=== PATIENT | male | born 1955 | race Two or more races ===

== ENCOUNTER 2022-09-29 12:51 | Emergency (ER) | payer OTHER ==
[~2022-09-29] VITALS: Ht 175.3 cm; Wt 140.9 kg
[2022-09-29 12:51] VITALS: BP 181/90
[2022-09-29] MEDS ORDERED: methylPREDNISolone SOD SUCC 125 MG/2 ML VL IV ONE (13:45)
[2022-09-29 14:23] LABS: Basophils # (auto) 0.1 10 ^3/uL (0-0.2); Basophils % (auto) 0.7 % (0.0-2.0); Eosinophils # (auto) 0.4 10 ^3/uL (0-0.8); Eosinophils % (auto) 4.6 % (0.0-7.0); Hematocrit 40.1 % (41.0-53.0); Hemoglobin 12.8 g/dL (13.5-17.5); Lymphocytes # (auto) 1.7 10 ^3/uL (0.4-5.4); Lymphocytes % (auto) 20.9 % (10.0-50.0); Mean Corpuscular Hemoglobin 30.4 pg (28.0-32.0); Mean Corpuscular Volume 95.1 fL (80.0-100.0); Monocytes # (auto) 0.6 10 ^3/uL (0-1.3); Monocytes % (auto) 7.6 % (0.0-12.0); Neutrophils # (auto) 5.4 10 ^3/uL (1.6-8.6); Neutrophils % (auto) 66.2 % (37.0-80.0); Nucleated Red Blood Cells % 0.1 %; Red Blood Cells 4.21 10^6/uL (4.5-5.90); Red Cell Distribution Width 14.2 % (11.8-14.3); White Blood Cell 8.1 10^3/uL (4.4-10.8)
[2022-09-29 14:40] LABS: Albumin 3.3 g/dL (3.4-5.0); BUN/Creatinine Ratio 14.1; Calcium 8.6 mg/dL (8.5-10.1); Magnesium 2.4 mg/dL (1.6-2.6); Potassium 5.1 mmol/L (3.5-5.1)
[2022-09-29 14:43] LABS: Bilirubin, Total 0.4 mg/dL (0.2-1.0); Total Protein 6.5 g/dL (6.4-8.2)
[2022-09-29] MEDS ORDERED: IOHEXOL 350 MG/ML 100ML IJ ONE (16:45)
[2022-09-29] MEDS ORDERED: ALBUTEROL SULF 2.5 MG/0.5ML(0.5%) NEB SOLN NEB PRN (17:15)
[2022-09-29] MEDS ORDERED: SODIUM CHLORIDE 0.9% 1,000 ML IV SCH (17:15)
[2022-09-29] MEDS ORDERED: ACETAMINOPHEN 325 MG TAB PO PRN (17:15)
[2022-09-29] MEDS ORDERED: methylPREDNISolone SOD SUCC 125 MG/2 ML VL IV SCH (22:00)
[2022-09-30] MEDS ORDERED: ENOXAPARIN SOD 40 MG/0.4 ML SYRINGE SC SCH (10:00)
== END 2022-09-29 19:00 | disposition left against medical advice (07) ==
LOC: ER 12:51 → EDBD 12:51 → ER 15:00
DX: J96.00 Acute respiratory failure, unspecified whether with hypoxia or hypercapnia (principal); R41.82 Altered mental status, unspecified; E11.9 Type 2 diabetes mellitus without complications; E78.5 Hyperlipidemia, unspecified; I10 Essential (primary) hypertension; Z86.73 Personal history of transient ischemic attack (TIA), and cerebral infarction without residual deficits; Z20.822 Contact with and (suspected) exposure to COVID-19
CPT/HCPCS: 36415; 71045; 80053; 83605; 83735; 83880; 84484; 85025; 85379; 87040; 87426; 87804; 93005

== ENCOUNTER 2023-11-25 20:09 | Inpatient (IN) | payer OTHER ==
[~2023-11-25] VITALS: Ht 188 cm; Wt 142.3 kg
[2023-11-25 20:36] VITALS: PULSE 89; RESP 17; O2SAT 99
[2023-11-25 21:14] LABS: Urine Bacteria FEW /hpf (None Seen); Urine Blood Negative /uL (Negative); Urine Clarity Clear (Clear); Urine Color Yellow (Yellow); Urine Hyaline Cast MOD /lpf (0 - 2); Urine Mucus FEW (None Seen); Urine Protein, UAD 1+ (Negative); Urine Specific Gravity 1.014 (1.001-1.035); Urine Urobilinogen Normal (Negative); Urine WBC 1 /hpf (0 - 3)
[2023-11-25 21:18] LABS: Hemoglobin 12.3 g/dL (13.5-17.5); Mean Corpuscular Hemoglobin 27.9 pg (28.0-32.0)
[2023-11-25 21:19] LABS: Hematocrit 39.9 % (41.0-53.0); Mean Corpuscular Hgb Conc. 30.8 g/dL (32.0-36.0); Mean Corpuscular Volume 90.8 fL (80.0-100.0); Red Blood Cells 4.39 10^6/uL (4.5-5.90); Red Cell Distribution Width 17.2 % (11.8-14.3); White Blood Cell 9.3 10^3/uL (4.4-10.8)
[2023-11-25 21:24] LABS: Band Neutrophils % (manual) 0; Basophils % (manual) 0 (0.0-2.0); Blast Cells 0; Eosinophils % (manual) 0 (0-7); Metamyelocytes % 0; Myelocytes % 0; Promyelocytes % 0
[2023-11-25 21:29] LABS: Alanine Aminotransferase 15 U/L (7-40); Albumin 4.2 g/dL (3.2-4.8); Alkaline Phosphatase 70 U/L (46-116); Anion Gap 2 (5-15); Aspartate Aminotransferase 17 U/L (13-40); BUN/Creatinine Ratio 11.7 (10.0-20.0); Bilirubin, Total 0.5 mg/dL (0.2-1.0); Blood Alcohol 3.8 mg/dL (<10); Blood Urea Nitrogen 24 mg/dL (9-23); Carbon Dioxide 32 mmol/L (20-30); Chloride 99 mmol/L (98-107); Glucose 122 mg/dL (74-106); Potassium 5.4 mmol/L (3.5-5.1); Sodium 133 mmol/L (136-145); Total Protein 6.8 g/dL (5.7-8.2)
[2023-11-25] MEDS: FUROSEMIDE 40 MG/4 ML VIAL IV ONE (21:30)
[2023-11-25 21:42] LABS: Lymphocytes % (manual) 10 (10.0-50.0); Monocytes % (manual) 8 (0-12)
[2023-11-25 21:43] LABS: Large Platelets FEW; Platelet Estimate Adequate; Reactive Lymphocytes 2
[2023-11-25] MEDS ORDERED: HYDROcodone-ACET 5/325MG TAB PO PRN (22:15)
[2023-11-25] MEDS ORDERED: DOCUSATE SOD 100 MG CAP PO PRN (22:15)
[2023-11-25] MEDS ORDERED: ACETAMINOPHEN 325 MG TAB PO PRN (22:15)
[2023-11-25] MEDS ORDERED: ONDANSETRON HCL 4 MG/2 ML VIAL IV PRN (22:15)
[2023-11-25] MEDS ORDERED: DEXTROSE (50%) 50ML SYRG IV PRN (22:15)
[2023-11-25] MEDS ORDERED: NITROGLYCERIN 0.4 MG SL TAB SL PRN (22:45)
[2023-11-26] VITALS (92 sets, daily range): BP systolic 83–170; BP diastolic 45–82; PULSE 50–90; RESP 10–22; TEMP 97.9–99.5; O2SAT 87–100
[2023-11-26 02:21] LABS: Base Excess -1.4 mmol/L (-2.0-2.0)
[2023-11-26] MEDS: LIDOCAINE 4MG/ML IV SOLN 500 ML IV SCH (03:00)
[2023-11-26] MEDS: ROCURONIUM 10MG/ML 10ML VIAL IV ONE ×2 (03:01→03:17)
[2023-11-26] MEDS: ETOMIDATE (2MG/ML) 20ML VIAL IV ONE ×2 (03:01→03:17)
[2023-11-26] MEDS: NOREPINEPHRINE 8 MG/250ML KIT 250 ML IV ONE (03:06)
[2023-11-26] MEDS: NOREPINEPHRINE 8 MG/250ML KIT 250 ML IV SCH (03:10)
[2023-11-26] MEDS: MIDAZOLAM DRIP 50 mg/50mL 50 ML IV ONE (03:13)
[2023-11-26] MEDS: MIDAZOLAM DRIP 50 mg/50mL 50 ML IV SCH (03:23)
[2023-11-26 03:44] LABS: Base Excess 0.8 mmol/L (-2.0-2.0)
[2023-11-26] MEDS: PROPOFOL 100 ML IV SCH (04:20)
[2023-11-26] MEDS: SODIUM CHLOR 0.9% PF (SALINE LOCK) 10ML VIAL/SYR IV SCH (06:00)
[2023-11-26] MEDS: ACCU-CHEK COMFORT CURVE STRIP VI SCH ×2 (06:38→19:32)
[2023-11-26] MEDS: InsuLIN REG 1unit/0.01ml Soln (100units/ml) SC SCH ×2 (06:40→18:00)
[2023-11-26 06:54] LABS: Basophils # (auto) 0 10 ^3/uL (0-0.2); Basophils % (auto) 0.3 % (0.0-2.0); Eosinophils # (auto) 0 10 ^3/uL (0-0.8); Lymphocytes # (auto) 1.5 10 ^3/uL (0.4-5.4); Neutrophils # (auto) 11.7 10 ^3/uL (1.6-8.6); White Blood Cell 14.8 10^3/uL (4.4-10.8)
[2023-11-26 06:57] LABS: Eosinophils % (auto) 0.1 % (0.0-7.0); Hematocrit 44.8 % (41.0-53.0); Hemoglobin 13.2 g/dL (13.5-17.5); Lymphocytes % (auto) 10.3 % (10.0-50.0); Mean Corpuscular Hemoglobin 28.1 pg (28.0-32.0); Mean Corpuscular Hgb Conc. 29.5 g/dL (32.0-36.0); Monocytes # (auto) 1.6 10 ^3/uL (0-1.3); Monocytes % (auto) 10.8 % (0.0-12.0); Neutrophils % (auto) 78.5 % (37.0-80.0); Nucleated Red Blood Cells % 0.5 %; Red Blood Cells 4.72 10^6/uL (4.5-5.90); Red Cell Distribution Width 18.1 % (11.8-14.3)
[2023-11-26 07:16] LABS: Alanine Aminotransferase 20 U/L (7-40); Albumin 4.3 g/dL (3.2-4.8); Alkaline Phosphatase 73 U/L (46-116); Anion Gap 8 (5-15); Aspartate Aminotransferase 32 U/L (13-40); BUN/Creatinine Ratio 17.2 (10.0-20.0); Bilirubin, Total 0.9 mg/dL (0.2-1.0); Carbon Dioxide 28 mmol/L (20-30); Chloride 97 mmol/L (98-107); Glucose 181 mg/dL (74-106); Sodium 133 mmol/L (136-145); Total Protein 6.6 g/dL (5.7-8.2)
[2023-11-26 07:29] LABS: Blood Urea Nitrogen 41 mg/dL (9-23); Potassium 6.2 mmol/L (3.5-5.1)
[2023-11-26] MEDS ORDERED: TAMS-35 PO (07:48)
[2023-11-26] MEDS ORDERED: SACU1TAB4 PO (07:48)
[2023-11-26] MEDS ORDERED: CARV3.1240 PO (07:48)
[2023-11-26] MEDS ORDERED: ATOR40TA52 PO (07:48)
[2023-11-26] MEDS ORDERED: GLIP5TAB12 PO (07:48)
[2023-11-26] MEDS ORDERED: FURO40TA4 PO (07:48)
[2023-11-26] MEDS ORDERED: DOCU-265 PO (07:51)
[2023-11-26] MEDS ORDERED: OMEP-434 PO (07:51)
[2023-11-26] MEDS ORDERED: ASPI-717 PO (07:51)
[2023-11-26 08:09] LABS: Base Excess 2.7 mmol/L (-2.0-2.0)
[2023-11-26] MEDS: SODIUM CHLORIDE 0.9% 500 ML IV ONE (08:43)
[2023-11-26] MEDS: BUMETANIDE 2.5mg/10ml (0.25 mg/ml) INJ IV ONE (08:56)
[2023-11-26] MEDS: ASPirin 81 mg TAB PO SCH (09:32)
[2023-11-26] MEDS: FUROSEMIDE 40 MG/4 ML VIAL IV SCH (09:32)
[2023-11-26 09:36] LABS: Platelet Estimate Adequate
[2023-11-26] MEDS: SODIUM ZIRCONIUM CYCL 10 GM PAK PO ONE (11:13)
[2023-11-26] MEDS ORDERED: DEXTROSE (50%) 50ML SYRG IV PRN (14:30)
[2023-11-26] MEDS: fentaNYL Drip 2500mCg/250mlNS 250 ML IV SCH (15:44)
[2023-11-26] MEDS: AMINO ACID INFUSION IN D10W 1,000 ML IV SCH (21:39)
[2023-11-26] MEDS ORDERED: CLINIMIX PER PHARMACY 0 ML IV SCH (23:00)
[2023-11-26] MEDS: FUROSEMIDE INJECTION 10 ML ONE (23:42)
[2023-11-26] MEDS: FUROSEMIDE INJECTION 100 MG in SODIUM CHL 0.9% 100 ML IV SCH (23:47)
[2023-11-27] VITALS (112 sets, daily range): BP systolic 93–146; BP diastolic 48–69; PULSE 57–70; RESP 17–22; TEMP 97–99.9; O2SAT 95–100
[2023-11-27 03:54] LABS: Basophils # (auto) 0.1 10 ^3/uL (0-0.2); Basophils % (auto) 0.7 % (0.0-2.0); Eosinophils # (auto) 0.1 10 ^3/uL (0-0.8); Eosinophils % (auto) 1.8 % (0.0-7.0); Hematocrit 39.3 % (41.0-53.0); Hemoglobin 12.3 g/dL (13.5-17.5); Lymphocytes # (auto) 1.5 10 ^3/uL (0.4-5.4); Lymphocytes % (auto) 20.9 % (10.0-50.0); Mean Corpuscular Hemoglobin 27.9 pg (28.0-32.0); Mean Corpuscular Hgb Conc. 31.2 g/dL (32.0-36.0); Mean Corpuscular Volume 89.3 fL (80.0-100.0); Monocytes # (auto) 0.5 10 ^3/uL (0-1.3); Monocytes % (auto) 7.6 % (0.0-12.0); Nucleated Red Blood Cells % 0.3 %; Red Cell Distribution Width 17.8 % (11.8-14.3); White Blood Cell 7.2 10^3/uL (4.4-10.8)
[2023-11-27 04:04] LABS: Alanine Aminotransferase 15 U/L (7-40); Albumin 3.4 g/dL (3.2-4.8); Alkaline Phosphatase 59 U/L (46-116); Aspartate Aminotransferase 14 U/L (13-40); BUN/Creatinine Ratio 15.6 (10.0-20.0); Blood Urea Nitrogen 33 mg/dL (9-23); Calcium 8.5 mg/dL (8.5-10.1); Chloride 100 mmol/L (98-107); Glucose 116 mg/dL (74-106); Potassium 3.5 mmol/L (3.5-5.1); Sodium 137 mmol/L (136-145); Triglycerides 178 mg/dL (< 150)
[2023-11-27 04:05] LABS: Bilirubin, Total 0.6 mg/dL (0.2-1.0); Phosphorus 2.3 mg/dL (2.4-5.1); Total Protein 5.5 g/dL (5.7-8.2)
[2023-11-27 04:07] LABS: Anion Gap 6 (5-15); Carbon Dioxide 31 mmol/L (20-30)
[2023-11-27 05:38] LABS: Magnesium 2.2 mg/dL (1.6-2.6)
[2023-11-27] MEDS: cefTRIAXone 1GM/50ML D5W 50 ML IV SCH (08:16)
[2023-11-27] MEDS ORDERED: DEXTROSE (50%) 50ML SYRG IV SCH (09:00)
[2023-11-27] MEDS: ENOXAPARIN SOD 40 MG/0.4 ML SYRINGE SC SCH (10:01)
[2023-11-27 11:38] LABS: Sodium Urine 61 mmol/L (40-220)
[2023-11-27 11:42] LABS: Protein, Urine < 6.0 mg/dL (0.0-11.9)
[2023-11-27] MEDS: ACCU-CHEK COMFORT CURVE STRIP VI SCH (11:43)
[2023-11-27] MEDS: InsuLIN REG 1unit/0.01ml Soln (100units/ml) SC SCH (11:44)
[2023-11-27 11:45] LABS: Creatinine, Urine 43.16 mg/dL (30.0-125.0)
[2023-11-27] MEDS: CEFEPIME 1GM/ 50ML 50 ML IV ONE (11:54)
[2023-11-27] MEDS: POTASSIUM PHOSPHATE 22 MEQ in SODIUM CHL 0.9% 100 ML IV ONE (16:28)
[2023-11-27] MEDS: AMINO ACID INFUSION IN D10W 1,000 ML IV SCH (21:46)
[2023-11-28] VITALS (108 sets, daily range): BP systolic 99–173; BP diastolic 45–74; PULSE 58–76; RESP 15–34; TEMP 98.6–100; O2SAT 95–100
[2023-11-28 04:11] LABS: Potassium 3.3 mmol/L (3.5-5.1)
[2023-11-28 04:18] LABS: BUN/Creatinine Ratio 18.1 (10.0-20.0); Magnesium 1.8 mg/dL (1.6-2.6)
[2023-11-28 04:19] LABS: Albumin 3.3 g/dL (3.2-4.8)
[2023-11-28 04:20] LABS: Phosphorus 3.4 mg/dL (2.4-5.1)
[2023-11-28 06:44] LABS: Basophils # (auto) 0.1 10 ^3/uL (0-0.2); Hemoglobin 12.4 g/dL (13.5-17.5); Lymphocytes # (auto) 1.4 10 ^3/uL (0.4-5.4); Lymphocytes % (auto) 16.4 % (10.0-50.0); Monocytes # (auto) 0.6 10 ^3/uL (0-1.3); Nucleated Red Blood Cells % 0.1 %; White Blood Cell 8.5 10^3/uL (4.4-10.8)
[2023-11-28 06:47] LABS: Basophils % (auto) 0.9 % (0.0-2.0); Eosinophils # (auto) 0.2 10 ^3/uL (0-0.8); Eosinophils % (auto) 2.4 % (0.0-7.0); Hematocrit 39.9 % (41.0-53.0); Mean Corpuscular Hemoglobin 27.7 pg (28.0-32.0); Mean Corpuscular Hgb Conc. 31.1 g/dL (32.0-36.0); Mean Corpuscular Volume 89.2 fL (80.0-100.0); Monocytes % (auto) 7.1 % (0.0-12.0); Neutrophils # (auto) 6.2 10 ^3/uL (1.6-8.6); Neutrophils % (auto) 73.2 % (37.0-80.0); Red Blood Cells 4.47 10^6/uL (4.5-5.90); Red Cell Distribution Width 17.1 % (11.8-14.3)
[2023-11-28] MEDS: Glucerna 1.2 Cal 1Liter BOTTLE GT SCH (07:37)
[2023-11-28 09:16] LABS: Base Excess 9.9 mmol/L (-2.0-2.0)
[2023-11-28] MEDS: CEFEPIME 1GM/ 50ML 50 ML IV SCH (10:07)
[2023-11-28] MEDS: POTASSIUM CHL 20MEQ/100ML 100 ML IV ONE (14:49)
[2023-11-28] MEDS: hydrALAZINE HCL 20 MG/ML VL IV PRN (17:26)
[2023-11-28] MEDS: acetaZOLAMIDE SODIUM 500 MG VL IV SCH (22:12)
[2023-11-29] VITALS (104 sets, daily range): BP systolic 80–131; BP diastolic 39–67; PULSE 59–90; RESP 18–19; TEMP 98.4–99.7; O2SAT 95–100
[2023-11-29 03:49] LABS: Calcium 8.1 mg/dL (8.7-10.4); Chloride 98 mmol/L (98-107); Potassium 3.3 mmol/L (3.5-5.1); Sodium 137 mmol/L (136-145)
[2023-11-29 03:50] LABS: Anion Gap 4 (5-15); Carbon Dioxide 35 mmol/L (20-30)
[2023-11-29 03:55] LABS: BUN/Creatinine Ratio 17.5 (10.0-20.0); Blood Urea Nitrogen 29 mg/dL (9-23); Glucose 136 mg/dL (74-106)
[2023-11-29 08:18] LABS: Base Excess 4.4 mmol/L (-2.0-2.0)
[2023-11-29 11:10] LABS: Magnesium 1.9 mg/dL (1.6-2.6)
[2023-11-29 11:11] LABS: Phosphorus 4.2 mg/dL (2.4-5.1)
[2023-11-29] MEDS: POTASSIUM CHL 20MEQ/100ML 100 ML IV ONE (12:26)
[2023-11-29] MEDS: PANTOPRAZOLE 40 MG/10 ML VIAL INJ IV ONE (14:09)
[2023-11-29] MEDS: CEFEPIME 2GM/50ML NS 50 ML IV SCH (18:16)
[2023-11-29] MEDS ORDERED: CEFEPIME 2GM/50ML NS 50 ML IV SCH (22:00)
[2023-11-30] VITALS (104 sets, daily range): BP systolic 76–148; BP diastolic 38–66; PULSE 51–73; RESP 18; TEMP 98.1–99.3; O2SAT 93–98
[2023-11-30 04:17] LABS: Eosinophils # (auto) 0.2 10 ^3/uL (0-0.8); Hemoglobin 12.3 g/dL (13.5-17.5); Monocytes # (auto) 0.8 10 ^3/uL (0-1.3)
[2023-11-30 04:19] LABS: Basophils # (auto) 0 10 ^3/uL (0-0.2); Basophils % (auto) 0.5 % (0.0-2.0); Eosinophils % (auto) 2.1 % (0.0-7.0); Hematocrit 40.3 % (41.0-53.0); Lymphocytes % (auto) 11.2 % (10.0-50.0); Mean Corpuscular Hemoglobin 27.6 pg (28.0-32.0); Mean Corpuscular Hgb Conc. 30.4 g/dL (32.0-36.0); Mean Corpuscular Volume 90.6 fL (80.0-100.0); Monocytes % (auto) 8.8 % (0.0-12.0); Neutrophils # (auto) 6.8 10 ^3/uL (1.6-8.6); Neutrophils % (auto) 77.4 % (37.0-80.0); Nucleated Red Blood Cells % 0.2 %; Red Blood Cells 4.45 10^6/uL (4.5-5.90); Red Cell Distribution Width 17.6 % (11.8-14.3); White Blood Cell 8.8 10^3/uL (4.4-10.8)
[2023-11-30 04:46] LABS: Alanine Aminotransferase 10 U/L (7-40); Albumin 3.5 g/dL (3.2-4.8); Alkaline Phosphatase 63 U/L (46-116); Anion Gap 5 (5-15); Aspartate Aminotransferase 16 U/L (13-40); BUN/Creatinine Ratio 18.1 (10.0-20.0); Blood Urea Nitrogen 31 mg/dL (9-23); Calcium 8.3 mg/dL (8.7-10.4); Carbon Dioxide 32 mmol/L (20-30); Chloride 99 mmol/L (98-107); Glucose 155 mg/dL (74-106); Magnesium 2.1 mg/dL (1.6-2.6); Potassium 3.7 mmol/L (3.5-5.1); Sodium 136 mmol/L (136-145)
[2023-11-30 04:47] LABS: Bilirubin, Total 0.6 mg/dL (0.2-1.0); Phosphorus 4.1 mg/dL (2.4-5.1); Total Protein 5.9 g/dL (5.7-8.2)
[2023-11-30 06:45] LABS: Base Excess 5.4 mmol/L (-2.0-2.0)
[2023-11-30] MEDS: PANTOPRAZOLE 40 MG/10 ML VIAL INJ IV SCH (10:10)
[2023-11-30] MEDS: FUROSEMIDE 100 MG/10ML VIAL IV SCH (18:31)
[2023-11-30] MEDS ORDERED: DOCUSATE ORAL LIQUID 100 MG/10 ML UD GT PRN (20:00)
[2023-12-01] VITALS (106 sets, daily range): BP systolic 101–144; BP diastolic 39–64; PULSE 51–65; RESP 12–20; TEMP 96.8–98.8; O2SAT 90–100
[2023-12-01 03:52] LABS: Basophils # (auto) 0.1 10 ^3/uL (0-0.2); Eosinophils # (auto) 0.3 10 ^3/uL (0-0.8); Eosinophils % (auto) 3.5 % (0.0-7.0); Hematocrit 39.6 % (41.0-53.0); Hemoglobin 12.1 g/dL (13.5-17.5); Lymphocytes # (auto) 1.4 10 ^3/uL (0.4-5.4); Lymphocytes % (auto) 16.6 % (10.0-50.0); Mean Corpuscular Hemoglobin 27.4 pg (28.0-32.0); Mean Corpuscular Hgb Conc. 30.5 g/dL (32.0-36.0); Monocytes # (auto) 0.8 10 ^3/uL (0-1.3); Monocytes % (auto) 9.6 % (0.0-12.0); Neutrophils % (auto) 69.3 % (37.0-80.0); Nucleated Red Blood Cells % 0.2 %; Red Cell Distribution Width 17.4 % (11.8-14.3); White Blood Cell 8.6 10^3/uL (4.4-10.8)
[2023-12-01 04:17] LABS: Alanine Aminotransferase 12 U/L (7-40); Albumin 3.4 g/dL (3.2-4.8); Alkaline Phosphatase 58 U/L (46-116); Anion Gap 6 (5-15); Aspartate Aminotransferase 19 U/L (13-40); BUN/Creatinine Ratio 21.5 (10.0-20.0); Blood Urea Nitrogen 37 mg/dL (9-23); Calcium 8.6 mg/dL (8.7-10.4); Carbon Dioxide 31 mmol/L (20-30); Chloride 99 mmol/L (98-107); Glucose 126 mg/dL (74-106); Magnesium 2.2 mg/dL (1.6-2.6); Potassium 3.6 mmol/L (3.5-5.1); Sodium 136 mmol/L (136-145)
[2023-12-01 04:18] LABS: Bilirubin, Total 0.5 mg/dL (0.2-1.0); Phosphorus 4.2 mg/dL (2.4-5.1); Total Protein 5.8 g/dL (5.7-8.2)
[2023-12-01 06:47] LABS: Base Excess 1.6 mmol/L (-2.0-2.0)
[2023-12-02] VITALS (107 sets, daily range): BP systolic 108–186; BP diastolic 40–128; PULSE 52–122; RESP 10–27; TEMP 74.1–100.4; O2SAT 86–98
[2023-12-02 03:44] LABS: Basophils # (auto) 0 10 ^3/uL (0-0.2); Basophils % (auto) 0.6 % (0.0-2.0); Eosinophils # (auto) 0.2 10 ^3/uL (0-0.8); Hematocrit 39.1 % (41.0-53.0); Hemoglobin 12.3 g/dL (13.5-17.5); Lymphocytes # (auto) 1.1 10 ^3/uL (0.4-5.4); Lymphocytes % (auto) 15.5 % (10.0-50.0); Mean Corpuscular Hemoglobin 27.9 pg (28.0-32.0); Mean Corpuscular Hgb Conc. 31.3 g/dL (32.0-36.0); Mean Corpuscular Volume 89.1 fL (80.0-100.0); Monocytes # (auto) 0.6 10 ^3/uL (0-1.3); Monocytes % (auto) 8.2 % (0.0-12.0); Neutrophils # (auto) 5.5 10 ^3/uL (1.6-8.6); Neutrophils % (auto) 73.7 % (37.0-80.0); Nucleated Red Blood Cells % 0.1 %; Red Blood Cells 4.39 10^6/uL (4.5-5.90); Red Cell Distribution Width 17.6 % (11.8-14.3); White Blood Cell 7.4 10^3/uL (4.4-10.8)
[2023-12-02 04:06] LABS: Alanine Aminotransferase 15 U/L (7-40); Albumin 3.5 g/dL (3.2-4.8); Alkaline Phosphatase 63 U/L (46-116); Anion Gap 5 (5-15); Aspartate Aminotransferase 18 U/L (13-40); BUN/Creatinine Ratio 23.8 (10.0-20.0); Bilirubin, Total 0.5 mg/dL (0.2-1.0); Blood Urea Nitrogen 40 mg/dL (9-23); Calcium 8.6 mg/dL (8.7-10.4); Carbon Dioxide 30 mmol/L (20-30); Chloride 100 mmol/L (98-107); Glucose 176 mg/dL (74-106); Magnesium 2.4 mg/dL (1.6-2.6); Potassium 3.8 mmol/L (3.5-5.1); Sodium 135 mmol/L (136-145); Total Protein 5.9 g/dL (5.7-8.2)
[2023-12-02] MEDS ORDERED: CLINIMIX PER PHARMACY 0 ML IV SCH (18:45)
[2023-12-02] MEDS: AMINO ACID INFUSION IN D10W 1,000 ML IV SCH (20:22)
[2023-12-02] MEDS: MORPHINE SULFATE INJ 2 MG/ml SYRG IV PRN ×2 (21:15→21:19)
[2023-12-03] VITALS (50 sets, daily range): BP systolic 102–173; BP diastolic 51–118; PULSE 67–97; RESP 13–27; TEMP 98.3–100.6; O2SAT 94–99
[2023-12-03 05:02] LABS: Basophils # (auto) 0.1 10 ^3/uL (0-0.2); Basophils % (auto) 1.1 % (0.0-2.0)
[2023-12-03 05:04] LABS: Eosinophils # (auto) 0.2 10 ^3/uL (0-0.8); Eosinophils % (auto) 2.6 % (0.0-7.0); Hemoglobin 12.1 g/dL (13.5-17.5); Lymphocytes % (auto) 15.3 % (10.0-50.0); Mean Corpuscular Hemoglobin 27.4 pg (28.0-32.0); Mean Corpuscular Hgb Conc. 31.1 g/dL (32.0-36.0); Monocytes # (auto) 0.5 10 ^3/uL (0-1.3); Monocytes % (auto) 8.4 % (0.0-12.0); Neutrophils # (auto) 4.7 10 ^3/uL (1.6-8.6); Neutrophils % (auto) 72.6 % (37.0-80.0); Red Blood Cells 4.43 10^6/uL (4.5-5.90); Red Cell Distribution Width 17.1 % (11.8-14.3); White Blood Cell 6.5 10^3/uL (4.4-10.8)
[2023-12-03 05:19] LABS: Alanine Aminotransferase 22 U/L (7-40); Albumin 3.9 g/dL (3.2-4.8); Alkaline Phosphatase 67 U/L (46-116); Anion Gap 6 (5-15); Aspartate Aminotransferase 31 U/L (13-40); BUN/Creatinine Ratio 25.2 (10.0-20.0); Blood Urea Nitrogen 36 mg/dL (9-23); Calcium 9.1 mg/dL (8.7-10.4); Carbon Dioxide 30 mmol/L (20-30); Chloride 103 mmol/L (98-107); Glucose 156 mg/dL (74-106); Magnesium 2.4 mg/dL (1.6-2.6); Potassium 3.6 mmol/L (3.5-5.1); Sodium 139 mmol/L (136-145)
[2023-12-03 05:20] LABS: Bilirubin, Total 0.7 mg/dL (0.2-1.0); Phosphorus 2.3 mg/dL (2.4-5.1); Total Protein 6.6 g/dL (5.7-8.2)
[2023-12-03] MEDS ORDERED: DEXTROSE (50%) 50ML SYRG IV PRN (11:30)
[2023-12-03] MEDS ORDERED: DOCUSATE SOD 100 MG CAP PO PRN (11:30)
[2023-12-03] MEDS: ACCU-CHEK COMFORT CURVE STRIP VI SCH (12:28)
[2023-12-03] MEDS: LORazepam 2MG/ML-1ML VIAL IV PRN (12:29)
[2023-12-03] MEDS: InsuLIN REG 1unit/0.01ml Soln (100units/ml) SC SCH (12:36)
[2023-12-03] MEDS: POTASSIUM PHOSPHATE 22 MEQ in SODIUM CHL 0.9% 100 ML IV ONE (14:45)
[2023-12-03] MEDS ORDERED: ACETAMINOPHEN 650 MG RECT SUPP PR PRN (15:45)
[2023-12-03] MEDS: MORPHINE SULFATE INJ 2 MG/ml SYRG IV PRN (16:30)
[2023-12-04] VITALS (23 sets, daily range): BP systolic 89–173; BP diastolic 44–83; PULSE 74–118; RESP 11–35; TEMP 98.1–99.9; O2SAT 92–99
[2023-12-04 05:24] LABS: Basophils # (auto) 0.1 10 ^3/uL (0-0.2); Basophils % (auto) 1.2 % (0.0-2.0); Eosinophils # (auto) 0.1 10 ^3/uL (0-0.8); Lymphocytes # (auto) 0.8 10 ^3/uL (0.4-5.4); Monocytes # (auto) 0.6 10 ^3/uL (0-1.3); Neutrophils # (auto) 5.4 10 ^3/uL (1.6-8.6); Nucleated Red Blood Cells % 0.1 %
[2023-12-04 05:26] LABS: Eosinophils % (auto) 1.6 % (0.0-7.0); Hematocrit 42.2 % (41.0-53.0); Hemoglobin 12.9 g/dL (13.5-17.5); Lymphocytes % (auto) 11.7 % (10.0-50.0); Mean Corpuscular Hemoglobin 27.4 pg (28.0-32.0); Mean Corpuscular Hgb Conc. 30.5 g/dL (32.0-36.0); Mean Corpuscular Volume 89.7 fL (80.0-100.0); Monocytes % (auto) 8.9 % (0.0-12.0); Neutrophils % (auto) 76.6 % (37.0-80.0); Red Cell Distribution Width 17.5 % (11.8-14.3); White Blood Cell 7.1 10^3/uL (4.4-10.8)
[2023-12-04 05:43] LABS: Alanine Aminotransferase 38 U/L (7-40); Albumin 4.1 g/dL (3.2-4.8); Alkaline Phosphatase 74 U/L (46-116); Anion Gap 4 (5-15); Aspartate Aminotransferase 38 U/L (13-40); BUN/Creatinine Ratio 26.5 (10.0-20.0); Bilirubin, Total 0.7 mg/dL (0.2-1.0); Blood Urea Nitrogen 36 mg/dL (9-23); Calcium 9.4 mg/dL (8.7-10.4); Carbon Dioxide 31 mmol/L (20-30); Chloride 105 mmol/L (98-107); Glucose 195 mg/dL (74-106); Magnesium 2.5 mg/dL (1.6-2.6); Phosphorus 2.7 mg/dL (2.4-5.1); Potassium 3.6 mmol/L (3.5-5.1); Sodium 140 mmol/L (136-145); Total Protein 7.1 g/dL (5.7-8.2)
[2023-12-04] MEDS: SACUBITRIL-VALSARTAN 24mg/26mg TAB PO SCH (10:00)
[2023-12-04] MEDS: CARVEDILOL 3.125 MG TAB PO SCH (10:00)
[2023-12-05] VITALS (21 sets, daily range): BP systolic 123–163; BP diastolic 53–78; PULSE 64–88; RESP 10–35; TEMP 97.9–98.7; O2SAT 95–100
[2023-12-05] MEDS: ACETAMINOPHEN 650 MG RECT SUPP PR PRN (05:16)
[2023-12-05 06:02] LABS: Alanine Aminotransferase 56 U/L (7-40); Albumin 4.1 g/dL (3.2-4.8); Alkaline Phosphatase 75 U/L (46-116); Anion Gap 7 (5-15); Aspartate Aminotransferase 39 U/L (13-40); BUN/Creatinine Ratio 24.9 (10.0-20.0); Blood Urea Nitrogen 43 mg/dL (9-23); Calcium 9.6 mg/dL (8.7-10.4); Carbon Dioxide 30 mmol/L (20-30); Chloride 105 mmol/L (98-107); Glucose 176 mg/dL (74-106); Magnesium 2.5 mg/dL (1.6-2.6); Potassium 3.8 mmol/L (3.5-5.1); Sodium 142 mmol/L (136-145)
[2023-12-05 06:03] LABS: Bilirubin, Total 0.6 mg/dL (0.2-1.0); Phosphorus 3.5 mg/dL (2.4-5.1)
[2023-12-05] MEDS: FUROSEMIDE 40 MG/4 ML VIAL IV SCH (18:07)
[2023-12-06 05:27] VITALS: BP 161/76; PULSE 71; RESP 18; TEMP 98.5; O2SAT 97
[2023-12-06 06:52] LABS: Calcium 9.7 mg/dL (8.7-10.4)
[2023-12-06 06:57] LABS: Albumin 4.2 g/dL (3.2-4.8); BUN/Creatinine Ratio 27.3 (10.0-20.0); Magnesium 2.6 mg/dL (1.6-2.6)
[2023-12-06 06:59] LABS: Phosphorus 3.3 mg/dL (2.4-5.1)
[2023-12-06 08:00] VITALS: PULSE 66; PULSE 78; O2SAT 96
[2023-12-06 13:00] VITALS: BP 138/55; PULSE 74; RESP 18; TEMP 98.1; O2SAT 96
[2023-12-06 17:00] VITALS: BP 136/57; PULSE 67; RESP 20; TEMP 98.5; O2SAT 90
[2023-12-06 20:00] VITALS: PULSE 107
[2023-12-06 21:48] VITALS: BP 119/65; PULSE 91; RESP 18; TEMP 97.6; O2SAT 94
[2023-12-07 06:00] VITALS: BP 150/68; PULSE 87; RESP 18; TEMP 97.7; O2SAT 95
[2023-12-07 06:26] LABS: Chloride 106 mmol/L (98-107); Potassium 4.2 mmol/L (3.5-5.1); Sodium 142 mmol/L (136-145)
[2023-12-07 06:27] LABS: Anion Gap 5 (5-15); Carbon Dioxide 31 mmol/L (20-30)
[2023-12-07 06:28] LABS: Calcium 9.9 mg/dL (8.5-10.1)
[2023-12-07 06:33] LABS: BUN/Creatinine Ratio 29.8 (10.0-20.0); Blood Urea Nitrogen 54 mg/dL (9-23); Glucose 177 mg/dL (74-106)
[2023-12-07 08:00] VITALS: PULSE 78; PULSE 80; RESP 20
[2023-12-07 09:00] VITALS: BP 132/59; PULSE 78; RESP 20; TEMP 99; O2SAT 97
[2023-12-07 11:56] VITALS: BP 121/69; PULSE 78; RESP 20; TEMP 98.4; O2SAT 94
[2023-12-07 13:00] VITALS: BP 121/69; PULSE 78; RESP 20; TEMP 98.5; O2SAT 94
[2023-12-07] MEDS ORDERED: LEVO250T58 PO (13:36)
== END 2023-12-07 12:30 | disposition home health service (06) | DRG 870 ==
LOC: EDBD 20:09 → ER 20:09 → TELE 22:35 → ICU WEST 11-26 04:51 → DOU IN ICU 12-03 13:48 → TELE-WESTW 12-05 16:47
PROVIDERS: ADMIT Nurse Practitioner Family; ATTEND Internal Medicine Geriatric Medicine
PROC: 05HM33Z Insertion of Infusion Device into Right Internal Jugular Vein, Percutaneous Approach (ICD-10-PCS; 2023-11-25)
PROC: 5A1955Z Respiratory Ventilation, Greater than 96 Consecutive Hours (ICD-10-PCS; principal; 2023-11-26)
PROC: 0BH17EZ Insertion of Endotracheal Airway into Trachea, Via Natural or Artificial Opening (ICD-10-PCS; 2023-11-26)
PROC: 5A09357 Assistance with Respiratory Ventilation, Less than 24 Consecutive Hours, Continuous Positive Airway Pressure (ICD-10-PCS; 2023-11-26)
PROC: 0BDF8ZX Extraction of Right Lower Lung Lobe, Via Natural or Artificial Opening Endoscopic, Diagnostic (ICD-10-PCS; 2023-11-29)
PROC: 05HB33Z Insertion of Infusion Device into Right Basilic Vein, Percutaneous Approach (ICD-10-PCS; 2023-12-03)
PROC: B54MZZA Ultrasonography of Right Upper Extremity Veins, Guidance (ICD-10-PCS; 2023-12-03)
DX: A41.9 Sepsis, unspecified organism (principal); G93.41 Metabolic encephalopathy; R65.21 Severe sepsis with septic shock; J18.9 Pneumonia, unspecified organism; N17.0 Acute kidney failure with tubular necrosis; I50.43 Acute on chronic combined systolic (congestive) and diastolic (congestive) heart failure; J96.21 Acute and chronic respiratory failure with hypoxia; E87.3 Alkalosis; Z99.11 Dependence on respirator [ventilator] status; E87.20 Acidosis, unspecified; I13.0 Hypertensive heart and chronic kidney disease with heart failure and stage 1 through stage 4 chronic kidney disease, or unspecified chronic kidney disease; J44.0 Chronic obstructive pulmonary disease with (acute) lower respiratory infection; Z68.41 Body mass index [BMI] 40.0-44.9, adult; E87.5 Hyperkalemia; E87.6 Hypokalemia; E78.5 Hyperlipidemia, unspecified; R29.6 Repeated falls; N18.32 Chronic kidney disease, stage 3b; E66.01 Morbid (severe) obesity due to excess calories; F41.9 Anxiety disorder, unspecified; N40.0 Benign prostatic hyperplasia without lower urinary tract symptoms; B95.7 Other staphylococcus as the cause of diseases classified elsewhere; E11.22 Type 2 diabetes mellitus with diabetic chronic kidney disease; R00.1 Bradycardia, unspecified; Z71.3 Dietary counseling and surveillance; Z79.82 Long term (current) use of aspirin; Z79.899 Other long term (current) drug therapy; Z99.81 Dependence on supplemental oxygen; Z79.84 Long term (current) use of oral hypoglycemic drugs; Z85.46 Personal history of malignant neoplasm of prostate; Z86.73 Personal history of transient ischemic attack (TIA), and cerebral infarction without residual deficits; Z82.49 Family history of ischemic heart disease and other diseases of the circulatory system
CPT/HCPCS: 31500; 36415; 36556; 36600; 70450; 71045; 76604; 76775; 80048; 80053; 80069; 80320; 81001; 82570; 82805; 82962; 83735; 83880; 84100; 84132; 84156; 84300; 84443; 84478; 84484; 85007; 85025; 85027; 87040; 87070; 87077; 87081; 87086; 87186; 87205; 92610; 93005; 93306; 94002; 94003; 94660; 97110; 97116; 97163; 97530; 99152; 99291; C9113; G0378; J0692; J1815; J2250; J2704; J3480

== ENCOUNTER 2023-12-11 10:33 | Inpatient (IN) | payer OTHER ==
[2023-12-11] VITALS (11 sets, daily range): BP systolic 92–145; BP diastolic 32–52; PULSE 72–108; RESP 14–22; O2SAT 92–99
[~2023-12-11] VITALS: Ht 177.8 cm; Wt 135.5 kg
[~2023-12-11 10:33] MED LIST: LEVO250T58 PO
[2023-12-11 12:16] LABS: Urine Bacteria NONE SEEN /hpf (None Seen); Urine Blood 1+ /uL (Negative); Urine Clarity HAZY (Clear); Urine Color Yellow (Yellow); Urine Hyaline Cast FEW /lpf (0 - 2); Urine Protein, UAD 1+ (Negative); Urine Specific Gravity 1.018 (1.001-1.035); Urine Urobilinogen Normal (Negative); Urine WBC 10 /hpf (0 - 3); Urine WBC Clumps PRESENT /hpf (None Seen)
[2023-12-11 12:18] LABS: Basophils # (auto) 0 10 ^3/uL (0-0.2); Eosinophils # (auto) 0 10 ^3/uL (0-0.8); Eosinophils % (auto) 0.2 % (0.0-7.0); Lymphocytes # (auto) 0.8 10 ^3/uL (0.4-5.4); Monocytes # (auto) 0.4 10 ^3/uL (0-1.3); Nucleated Red Blood Cells % 0.1 %
[2023-12-11 12:20] LABS: Basophils % (auto) 0.5 % (0.0-2.0); Hematocrit 39.3 % (41.0-53.0); Lymphocytes % (auto) 10.5 % (10.0-50.0); Mean Corpuscular Hemoglobin 27.6 pg (28.0-32.0); Mean Corpuscular Hgb Conc. 30.5 g/dL (32.0-36.0); Mean Corpuscular Volume 90.4 fL (80.0-100.0); Monocytes % (auto) 5.1 % (0.0-12.0); Neutrophils % (auto) 83.7 % (37.0-80.0); Red Blood Cells 4.35 10^6/uL (4.5-5.90); Red Cell Distribution Width 17.4 % (11.8-14.3); White Blood Cell 7.2 10^3/uL (4.4-10.8)
[2023-12-11 12:33] LABS: Alanine Aminotransferase 78 U/L (7-40); Alkaline Phosphatase 110 U/L (46-116); Anion Gap 11 (5-15); Aspartate Aminotransferase 105 U/L (13-40); Bilirubin, Total 0.4 mg/dL (0.2-1.0); Calcium 8.7 mg/dL (8.5-10.1); Carbon Dioxide 23 mmol/L (20-30); Chloride 98 mmol/L (98-107); Glucose 174 mg/dL (74-106); Potassium 5.3 mmol/L (3.5-5.1); Total Protein 6.5 g/dL (5.7-8.2)
[2023-12-11 12:35] LABS: Sodium 132 mmol/L (136-145)
[2023-12-11 12:36] LABS: Blood Urea Nitrogen 139 mg/dL (9-23)
[2023-12-11] MEDS ORDERED: ONDANSETRON HCL 4 MG/2 ML VIAL IV PRN (13:15)
[2023-12-11] MEDS ORDERED: MORPHINE SULFATE INJ 2 MG/ml SYRG IV PRN (13:15)
[2023-12-11] MEDS ORDERED: DEXTROSE (50%) 50ML SYRG IV PRN (13:15)
[2023-12-11] MEDS ORDERED: NITROGLYCERIN 0.4 MG SL TAB SL PRN (13:15)
[2023-12-11] MEDS ORDERED: ACETAMINOPHEN 325 MG TAB PO PRN (13:15)
[2023-12-11] MEDS ORDERED: ALBUTEROL SULF 2.5 MG/0.5ML(0.5%) NEB SOLN NEB PRN (13:15)
[2023-12-11] MEDS: IPRATROPIUM BROM 0.5 MG/2.5ML INH SOL NEB SCH (13:32)
[2023-12-11] MEDS: ALBUTEROL SULF 2.5 MG/0.5ML(0.5%) NEB SOLN NEB SCH (13:32)
[2023-12-11 13:34] LABS: INR 1.09 (0.9-1.15); Partial Thromboplastin Time 29.2 SEC (24.5-34.5); Prothrombin Time 11.4 sec (9.3-11.8)
[2023-12-11] MEDS: SODIUM CHLORIDE 0.9% 500 ML IV ONE (13:55)
[2023-12-11] MEDS: SODIUM BICARB 8.4% 50Meq/50ml SYR Vial IV ONE (13:56)
[2023-12-11] MEDS: PANTOPRAZOLE 40 MG/10 ML VIAL INJ IV ONE (13:56)
[2023-12-11] MEDS: SODIUM CHLORIDE 0.9% 1,000 ML IV ONE (13:58)
[2023-12-11] MEDS: GLYCOPYRROLATE 0.2 MG/ML 1ML VIAL IV ONE (14:06)
[2023-12-11 14:19] LABS: Triglycerides 145 mg/dL (< 150)
[2023-12-11 14:20] LABS: LDL Cholesterol 65 mg/dL (< 100)
[2023-12-11 14:21] LABS: Cholesterol 112 mg/dL (< 200); HDL Cholesterol 21 mg/dL (40-59)
[2023-12-11 15:15] LABS: Amphetamine Screen, Urine Neg (NEGATIVE); Barbiturate Scree,Urine Neg (NEGATIVE); Benzodiazephine Screen, Urine Pos (NEGATIVE); Cocaine Screen, Urine Neg (NEGATIVE); Opiate Scree,Urine Pos (NEGATIVE)
[2023-12-11 15:16] LABS: Cannabinoid Screen, Urine Neg (NEGATIVE); Creatinine, Urine 196.57 mg/dL (30.0-125.0); Phencyclidine Screen, Urine Neg (NEGATIVE)
[2023-12-11] MEDS: cefTRIAXone 1GM/50ML D5W 50 ML IV ONE (16:00)
[2023-12-11] MEDS: AZITHROMYCIN 500MG/ 250ML 250 ML IV ONE (16:00)
[2023-12-11] MEDS: FUROSEMIDE 40 MG/4 ML VIAL IV ONE (16:09)
[2023-12-11] MEDS: CALCIUM GLUC 1,000mg/50ml-NS 50 ML IV ONE (16:10)
[2023-12-11] MEDS: ACCU-CHEK COMFORT CURVE STRIP VI SCH (17:00)
[2023-12-11] MEDS: InsuLIN REG 1unit/0.01ml Soln (100units/ml) SC SCH (17:00)
[2023-12-11] MEDS: NOREPINEPHRINE 8 MG/250ML KIT 250 ML IV SCH (17:15)
[2023-12-11] MEDS: NOREPINEPHRINE 8 MG/250ML KIT 250 ML IV ONE (17:16)
[2023-12-11] MEDS: ENOXAPARIN SOD 30 MG/0.3 ML SYRINGE SC SCH (19:02)
[2023-12-11] MEDS: ETOMIDATE (2MG/ML) 20ML VIAL IV ONE ×2 (19:16→19:47)
[2023-12-11] MEDS: ROCURONIUM 10MG/ML 10ML VIAL IV ONE ×2 (19:16→19:52)
[2023-12-11] MEDS: fentaNYL Drip 2500mCg/250mlNS 250 ML IV SCH (19:44)
[2023-12-11] MEDS: MIDAZOLAM DRIP 50 mg/50mL 50 ML IV SCH (19:53)
[2023-12-11 19:58] LABS: Alanine Aminotransferase 69 U/L (7-40); Albumin 3.9 g/dL (3.2-4.8); Alkaline Phosphatase 99 U/L (46-116); Anion Gap 11 (5-15); Aspartate Aminotransferase 97 U/L (13-40); BUN/Creatinine Ratio 16.2 (10.0-20.0); Bilirubin, Total 0.2 mg/dL (0.2-1.0); Calcium 8.1 mg/dL (8.7-10.4); Carbon Dioxide 25 mmol/L (20-30); Chloride 98 mmol/L (98-107); Glucose 119 mg/dL (74-106); Potassium 4.6 mmol/L (3.5-5.1); Sodium 134 mmol/L (136-145); Total Protein 6.6 g/dL (5.7-8.2)
[2023-12-11 20:00] LABS: Blood Urea Nitrogen 110 mg/dL (9-23)
[2023-12-11 20:22] LABS: Base Excess -10.4 mmol/L (-2.0-2.0)
[2023-12-12] VITALS (36 sets, daily range): BP systolic 84–156; BP diastolic 31–76; PULSE 66–117; RESP 13–21; TEMP 97.6–99.9; O2SAT 70–99
[2023-12-12 01:04] LABS: Base Excess -9.5 mmol/L (-2.0-2.0)
[2023-12-12 01:07] LABS: Base Excess -8.3 mmol/L (-2.0-2.0)
[2023-12-12 04:14] LABS: Basophils # (auto) 0 10 ^3/uL (0-0.2); Basophils % (auto) 0.6 % (0.0-2.0); Eosinophils # (auto) 0.1 10 ^3/uL (0-0.8); Eosinophils % (auto) 1.9 % (0.0-7.0); Hematocrit 35.7 % (41.0-53.0); Hemoglobin 11.2 g/dL (13.5-17.5); Lymphocytes # (auto) 1.2 10 ^3/uL (0.4-5.4); Lymphocytes % (auto) 16.1 % (10.0-50.0); Mean Corpuscular Hemoglobin 27.2 pg (28.0-32.0); Mean Corpuscular Hgb Conc. 31.4 g/dL (32.0-36.0); Mean Corpuscular Volume 86.8 fL (80.0-100.0); Monocytes # (auto) 0.6 10 ^3/uL (0-1.3); Monocytes % (auto) 8.5 % (0.0-12.0); Neutrophils # (auto) 5.4 10 ^3/uL (1.6-8.6); Neutrophils % (auto) 72.9 % (37.0-80.0); Nucleated Red Blood Cells % 0.1 %; Red Blood Cells 4.11 10^6/uL (4.5-5.90); Red Cell Distribution Width 17.6 % (11.8-14.3); White Blood Cell 7.5 10^3/uL (4.4-10.8)
[2023-12-12 04:37] LABS: Alanine Aminotransferase 57 U/L (7-40); Albumin 3.3 g/dL (3.2-4.8); Alkaline Phosphatase 82 U/L (46-116); Anion Gap 13 (5-15); Aspartate Aminotransferase 81 U/L (13-40); BUN/Creatinine Ratio 15.6 (10.0-20.0); Calcium 7.8 mg/dL (8.7-10.4); Carbon Dioxide 21 mmol/L (20-30); Chloride 101 mmol/L (98-107); Glucose 91 mg/dL (74-106); Potassium 3.6 mmol/L (3.5-5.1); Sodium 135 mmol/L (136-145)
[2023-12-12 04:38] LABS: Bilirubin, Total 0.5 mg/dL (0.2-1.0); Total Protein 5.7 g/dL (5.7-8.2)
[2023-12-12 04:50] LABS: Blood Urea Nitrogen 94 mg/dL (9-23)
[2023-12-12 06:46] LABS: Base Excess -3.2 mmol/L (-2.0-2.0)
[2023-12-12] MEDS: InsuLIN REG 1unit/0.01ml Soln (100units/ml) SC SCH (08:00)
[2023-12-12] MEDS: ACCU-CHEK COMFORT CURVE STRIP VI SCH (08:09)
[2023-12-12] MEDS: cefTRIAXone 1GM/50ML D5W 50 ML IV SCH (09:05)
[2023-12-12] MEDS: PANTOPRAZOLE 40 MG/10 ML VIAL INJ IV SCH (10:04)
[2023-12-12] MEDS: AZITHROMYCIN 500MG/ 250ML 250 ML IV SCH (10:04)
[2023-12-13] VITALS (116 sets, daily range): BP systolic 93–175; BP diastolic 47–83; PULSE 70–94; RESP 11–21; TEMP 97.2–99.3; O2SAT 91–98
[2023-12-13 04:32] LABS: Basophils # (auto) 0 10 ^3/uL (0-0.2); Basophils % (auto) 0.5 % (0.0-2.0); Eosinophils # (auto) 0.1 10 ^3/uL (0-0.8); Eosinophils % (auto) 2.4 % (0.0-7.0); Hematocrit 33.7 % (41.0-53.0); Hemoglobin 10.7 g/dL (13.5-17.5); Lymphocytes % (auto) 17.2 % (10.0-50.0); Mean Corpuscular Hemoglobin 27.5 pg (28.0-32.0); Mean Corpuscular Hgb Conc. 31.7 g/dL (32.0-36.0); Mean Corpuscular Volume 86.8 fL (80.0-100.0); Monocytes # (auto) 0.4 10 ^3/uL (0-1.3); Neutrophils # (auto) 4.3 10 ^3/uL (1.6-8.6); Neutrophils % (auto) 72.9 % (37.0-80.0); Red Blood Cells 3.89 10^6/uL (4.5-5.90); Red Cell Distribution Width 17.9 % (11.8-14.3); White Blood Cell 5.9 10^3/uL (4.4-10.8)
[2023-12-13 04:33] LABS: Anion Gap 11 (5-15); Carbon Dioxide 23 mmol/L (20-30); Chloride 104 mmol/L (98-107); Potassium 3.7 mmol/L (3.5-5.1); Sodium 138 mmol/L (136-145)
[2023-12-13 04:39] LABS: BUN/Creatinine Ratio 31.7 (10.0-20.0); Glucose 170 mg/dL (74-106)
[2023-12-13 04:58] LABS: Blood Urea Nitrogen 103 mg/dL (9-23)
[2023-12-13 07:35] LABS: Base Excess -4.8 mmol/L (-2.0-2.0)
[2023-12-14] VITALS (122 sets, daily range): BP systolic 112–182; BP diastolic 39–89; PULSE 61–119; RESP 11–25; TEMP 98.4–100; O2SAT 92–100
[2023-12-14 04:12] LABS: Basophils # (auto) 0 10 ^3/uL (0-0.2); Basophils % (auto) 0.8 % (0.0-2.0); Eosinophils # (auto) 0.3 10 ^3/uL (0-0.8); Eosinophils % (auto) 4.5 % (0.0-7.0); Hematocrit 33.3 % (41.0-53.0); Hemoglobin 10.5 g/dL (13.5-17.5); Lymphocytes % (auto) 17.1 % (10.0-50.0); Mean Corpuscular Hemoglobin 27.5 pg (28.0-32.0); Mean Corpuscular Hgb Conc. 31.6 g/dL (32.0-36.0); Mean Corpuscular Volume 87.2 fL (80.0-100.0); Monocytes # (auto) 0.5 10 ^3/uL (0-1.3); Neutrophils # (auto) 4.1 10 ^3/uL (1.6-8.6); Neutrophils % (auto) 69.6 % (37.0-80.0); Red Blood Cells 3.83 10^6/uL (4.5-5.90); Red Cell Distribution Width 18.1 % (11.8-14.3); White Blood Cell 5.9 10^3/uL (4.4-10.8)
[2023-12-14 04:30] LABS: Alanine Aminotransferase 38 U/L (7-40); Albumin 3.5 g/dL (3.2-4.8); Alkaline Phosphatase 72 U/L (46-116); Anion Gap 8 (5-15); Aspartate Aminotransferase 34 U/L (13-40); BUN/Creatinine Ratio 49.7 (10.0-20.0); Bilirubin, Total 0.4 mg/dL (0.2-1.0); Carbon Dioxide 26 mmol/L (20-30); Chloride 109 mmol/L (98-107); Glucose 121 mg/dL (74-106); Potassium 3.7 mmol/L (3.5-5.1); Sodium 143 mmol/L (136-145); Total Protein 5.7 g/dL (5.7-8.2)
[2023-12-14 04:59] LABS: Blood Urea Nitrogen 82 mg/dL (9-23)
[2023-12-14 07:35] LABS: Base Excess -1.2 mmol/L (-2.0-2.0)
[2023-12-14] MEDS: hydrALAZINE HCL 20 MG/ML VL IV ONE (09:18)
[2023-12-14] MEDS ORDERED: hydrALAZINE HCL 20 MG/ML VL IV PRN (11:30)
[2023-12-14] MEDS: METOPROLOL TARTRATE 1MG/1ML-5ML VIAL IV PRN (16:38)
[2023-12-14] MEDS: amLODIPine BESYLATE 5 MG TAB NG ONE (19:31)
[2023-12-14] MEDS: hydrALAZINE HCL 20 MG/ML VL IV PRN (21:24)
[2023-12-15] VITALS (113 sets, daily range): BP systolic 85–199; BP diastolic 44–107; PULSE 59–121; RESP 13–28; TEMP 98.6–99.9; O2SAT 92–100
[2023-12-15 04:35] LABS: Anion Gap 7 (5-15); Carbon Dioxide 27 mmol/L (20-30); Chloride 114 mmol/L (98-107)
[2023-12-15 04:36] LABS: Calcium 9.3 mg/dL (8.7-10.4)
[2023-12-15 04:41] LABS: Glucose 134 mg/dL (74-106)
[2023-12-15 04:44] LABS: Basophils # (auto) 0 10 ^3/uL (0-0.2); Basophils % (auto) 0.9 % (0.0-2.0); Eosinophils # (auto) 0.2 10 ^3/uL (0-0.8); Eosinophils % (auto) 3.4 % (0.0-7.0); Hematocrit 38.3 % (41.0-53.0); Hemoglobin 12.2 g/dL (13.5-17.5); Lymphocytes # (auto) 0.9 10 ^3/uL (0.4-5.4); Lymphocytes % (auto) 16.6 % (10.0-50.0); Mean Corpuscular Hgb Conc. 31.8 g/dL (32.0-36.0); Mean Corpuscular Volume 88.1 fL (80.0-100.0); Monocytes # (auto) 0.5 10 ^3/uL (0-1.3); Monocytes % (auto) 8.7 % (0.0-12.0); Neutrophils # (auto) 3.9 10 ^3/uL (1.6-8.6); Neutrophils % (auto) 70.4 % (37.0-80.0); Nucleated Red Blood Cells % 0.1 %; Red Blood Cells 4.35 10^6/uL (4.5-5.90); White Blood Cell 5.6 10^3/uL (4.4-10.8)
[2023-12-15 04:55] LABS: Blood Urea Nitrogen 46 mg/dL (9-23); Sodium 148 mmol/L (136-145)
[2023-12-15 08:44] LABS: Base Excess 2.3 mmol/L (-2.0-2.0)
[2023-12-15 10:22] LABS: INR 1.22 (0.9-1.15); Partial Thromboplastin Time 30.7 SEC (24.5-34.5); Prothrombin Time 12.6 sec (9.3-11.8)
[2023-12-15] MEDS ORDERED: EPINEPHrine HCL 1 MG/1 ML AMP ONE (12:49)
[2023-12-15] MEDS ORDERED: GLYCOPYRROLATE 0.2 MG/ML 1ML VIAL ONE (12:49)
[2023-12-15] MEDS ORDERED: LIDOCAINE 2% JELLY 11ml (GLYDO) ONE (12:49)
[2023-12-15] MEDS ORDERED: LIDOCAINE 2%HCL (LOCAL ANESTH.) INJ 20ML MDV ONE (12:49)
[2023-12-15] MEDS: ROCURONIUM 10MG/ML 10ML VIAL IV ONE (16:26)
[2023-12-15] MEDS: amLODIPine BESYLATE 5 MG TAB NG SCH (16:37)
[2023-12-15] MEDS: ENOXAPARIN SOD 40 MG/0.4 ML SYRINGE SC SCH (16:37)
[2023-12-15] MEDS: MORPHINE SULFATE INJ 2 MG/ml SYRG IV PRN (17:38)
[2023-12-15] MEDS: SOD CHL 0.45% 1,000 ML IV ONE (18:04)
[2023-12-16] VITALS (91 sets, daily range): BP systolic 100–173; BP diastolic 50–88; PULSE 42–110; RESP 14–25; TEMP 97.5–99.2; O2SAT 93–100
[2023-12-16 03:53] LABS: Basophils # (auto) 0.1 10 ^3/uL (0-0.2); Hemoglobin 11.1 g/dL (13.5-17.5); Lymphocytes # (auto) 1.1 10 ^3/uL (0.4-5.4); Monocytes # (auto) 0.4 10 ^3/uL (0-1.3); Neutrophils # (auto) 3.2 10 ^3/uL (1.6-8.6)
[2023-12-16 03:56] LABS: Basophils % (auto) 1.3 % (0.0-2.0); Eosinophils # (auto) 0.2 10 ^3/uL (0-0.8); Eosinophils % (auto) 4.9 % (0.0-7.0); Hematocrit 35.4 % (41.0-53.0); Lymphocytes % (auto) 21.8 % (10.0-50.0); Mean Corpuscular Hemoglobin 27.8 pg (28.0-32.0); Mean Corpuscular Hgb Conc. 31.3 g/dL (32.0-36.0); Mean Corpuscular Volume 88.7 fL (80.0-100.0); Nucleated Red Blood Cells % 0.2 %; Red Blood Cells 3.99 10^6/uL (4.5-5.90)
[2023-12-16 04:15] LABS: Calcium 9.3 mg/dL (8.7-10.4); Chloride 116 mmol/L (98-107); Sodium 150 mmol/L (136-145)
[2023-12-16 04:16] LABS: Anion Gap 7 (5-15); Carbon Dioxide 27 mmol/L (20-30)
[2023-12-16 04:21] LABS: BUN/Creatinine Ratio 32.7 (10.0-20.0); Glucose 140 mg/dL (74-106)
[2023-12-16 04:22] LABS: Magnesium 1.8 mg/dL (1.6-2.6)
[2023-12-16 04:33] LABS: Blood Urea Nitrogen 34 mg/dL (9-23)
[2023-12-16 08:00] LABS: Base Excess 3.5 mmol/L (-2.0-2.0)
[2023-12-16] MEDS: D5W 5% 1,000 ML IV SCH (09:00)
[2023-12-16] MEDS: ACCU-CHEK COMFORT CURVE STRIP VI SCH (12:30)
[2023-12-16] MEDS: InsuLIN REG 1unit/0.01ml Soln (100units/ml) SC SCH (12:30)
[2023-12-17] VITALS (91 sets, daily range): BP systolic 104–214; BP diastolic 50–98; PULSE 56–110; RESP 8–21; TEMP 97.9–99.2; O2SAT 80–100
[2023-12-17] MEDS: PROPOFOL 100 ML IV SCH (03:05)
[2023-12-17 04:06] LABS: Basophils # (auto) 0.1 10 ^3/uL (0-0.2); Eosinophils # (auto) 0.3 10 ^3/uL (0-0.8); Eosinophils % (auto) 5.6 % (0.0-7.0); Hematocrit 34.7 % (41.0-53.0); Hemoglobin 10.8 g/dL (13.5-17.5); Lymphocytes # (auto) 0.9 10 ^3/uL (0.4-5.4); Lymphocytes % (auto) 15.2 % (10.0-50.0); Mean Corpuscular Hemoglobin 27.3 pg (28.0-32.0); Mean Corpuscular Hgb Conc. 31.2 g/dL (32.0-36.0); Mean Corpuscular Volume 87.6 fL (80.0-100.0); Monocytes # (auto) 0.4 10 ^3/uL (0-1.3); Neutrophils # (auto) 4.1 10 ^3/uL (1.6-8.6); Neutrophils % (auto) 71.2 % (37.0-80.0); Nucleated Red Blood Cells % 0.1 %; Red Blood Cells 3.96 10^6/uL (4.5-5.90); Red Cell Distribution Width 17.9 % (11.8-14.3); White Blood Cell 5.8 10^3/uL (4.4-10.8)
[2023-12-17 04:26] LABS: Alanine Aminotransferase 31 U/L (7-40); Albumin 3.4 g/dL (3.2-4.8); Alkaline Phosphatase 65 U/L (46-116); Anion Gap 6 (5-15); Aspartate Aminotransferase 20 U/L (13-40); BUN/Creatinine Ratio 28.6 (10.0-20.0); Bilirubin, Total 0.5 mg/dL (0.2-1.0); Blood Urea Nitrogen 30 mg/dL (9-23); Calcium 8.8 mg/dL (8.7-10.4); Carbon Dioxide 28 mmol/L (20-30); Chloride 113 mmol/L (98-107); Glucose 178 mg/dL (74-106); Potassium 3.4 mmol/L (3.5-5.1); Sodium 147 mmol/L (136-145); Total Protein 5.8 g/dL (5.7-8.2)
[2023-12-17 08:08] LABS: Base Excess 1.4 mmol/L (-2.0-2.0)
[2023-12-17 15:14] LABS: Base Excess 2.5 mmol/L (-2.0-2.0)
[2023-12-17] MEDS: ACETAMINOPHEN 650 MG RECT SUPP PR PRN (22:59)
[2023-12-18] VITALS (34 sets, daily range): BP systolic 129–194; BP diastolic 62–84; PULSE 70–115; RESP 10–20; TEMP 97.8–99.3; O2SAT 91–99
[2023-12-18 03:57] LABS: Basophils # (auto) 0.1 10 ^3/uL (0-0.2); Eosinophils # (auto) 0.4 10 ^3/uL (0-0.8); Lymphocytes # (auto) 1.1 10 ^3/uL (0.4-5.4); Monocytes # (auto) 0.4 10 ^3/uL (0-1.3); Nucleated Red Blood Cells % 0.1 %; White Blood Cell 5.7 10^3/uL (4.4-10.8)
[2023-12-18 04:01] LABS: Basophils % (auto) 0.9 % (0.0-2.0); Eosinophils % (auto) 7.1 % (0.0-7.0); Hematocrit 35.1 % (41.0-53.0); Lymphocytes % (auto) 19.8 % (10.0-50.0); Mean Corpuscular Hemoglobin 27.4 pg (28.0-32.0); Mean Corpuscular Hgb Conc. 31.2 g/dL (32.0-36.0); Mean Corpuscular Volume 87.7 fL (80.0-100.0); Monocytes % (auto) 6.2 % (0.0-12.0); Neutrophils # (auto) 3.7 10 ^3/uL (1.6-8.6); Red Cell Distribution Width 18.1 % (11.8-14.3)
[2023-12-18 04:15] LABS: Alanine Aminotransferase 32 U/L (7-40); Albumin 3.6 g/dL (3.2-4.8); Alkaline Phosphatase 75 U/L (46-116); Anion Gap 6 (5-15); Aspartate Aminotransferase 24 U/L (13-40); BUN/Creatinine Ratio 16.2 (10.0-20.0); Bilirubin, Total 0.7 mg/dL (0.2-1.0); Blood Urea Nitrogen 16 mg/dL (9-23); Carbon Dioxide 28 mmol/L (20-30); Chloride 108 mmol/L (98-107); Glucose 139 mg/dL (74-106); Potassium 3.8 mmol/L (3.5-5.1); Sodium 142 mmol/L (136-145); Total Protein 6.2 g/dL (5.7-8.2)
[2023-12-18] MEDS: HYDROmorphone HCL 2 MG/ML VL/or syr IV PRN (11:00)
[2023-12-18] MEDS: D5W 5% 1,000 ML IV SCH (16:00)
[2023-12-19] VITALS (17 sets, daily range): BP systolic 132–151; BP diastolic 49–67; PULSE 70–99; RESP 16–20; TEMP 98–98.4; O2SAT 96–100
[2023-12-19 06:24] LABS: Basophils # (auto) 0.1 10 ^3/uL (0-0.2); Basophils % (auto) 1.2 % (0.0-2.0); Eosinophils # (auto) 0.2 10 ^3/uL (0-0.8); Eosinophils % (auto) 3.8 % (0.0-7.0); Hematocrit 35.1 % (41.0-53.0); Hemoglobin 10.9 g/dL (13.5-17.5); Lymphocytes # (auto) 1.2 10 ^3/uL (0.4-5.4); Lymphocytes % (auto) 22.4 % (10.0-50.0); Mean Corpuscular Hemoglobin 27.4 pg (28.0-32.0); Mean Corpuscular Hgb Conc. 31.1 g/dL (32.0-36.0); Mean Corpuscular Volume 87.9 fL (80.0-100.0); Monocytes # (auto) 0.4 10 ^3/uL (0-1.3); Monocytes % (auto) 8.2 % (0.0-12.0); Neutrophils # (auto) 3.5 10 ^3/uL (1.6-8.6); Neutrophils % (auto) 64.4 % (37.0-80.0); Red Blood Cells 3.99 10^6/uL (4.5-5.90); Red Cell Distribution Width 17.9 % (11.8-14.3); White Blood Cell 5.4 10^3/uL (4.4-10.8)
[2023-12-19 06:31] LABS: Alanine Aminotransferase 36 U/L (7-40); Albumin 3.7 g/dL (3.2-4.8); Alkaline Phosphatase 69 U/L (46-116); Anion Gap 8 (5-15); Aspartate Aminotransferase 31 U/L (13-40); BUN/Creatinine Ratio 10.7 (10.0-20.0); Blood Urea Nitrogen 12 mg/dL (9-23); Calcium 9.1 mg/dL (8.7-10.4); Carbon Dioxide 27 mmol/L (20-30); Chloride 106 mmol/L (98-107); Glucose 113 mg/dL (74-106); Potassium 3.6 mmol/L (3.5-5.1); Sodium 141 mmol/L (136-145)
[2023-12-19 06:32] LABS: Bilirubin, Total 0.7 mg/dL (0.2-1.0); Total Protein 6.4 g/dL (5.7-8.2)
[2023-12-19] MEDS: HYDROcodone-ACET 10/325MG TAB PO PRN (15:50)
[2023-12-20] VITALS (21 sets, daily range): BP systolic 110–156; BP diastolic 52–79; PULSE 65–95; RESP 16–22; TEMP 98.2–98.7; O2SAT 94–100
[2023-12-20 06:30] LABS: Basophils # (auto) 0.1 10 ^3/uL (0-0.2); Eosinophils # (auto) 0.2 10 ^3/uL (0-0.8); Eosinophils % (auto) 4.7 % (0.0-7.0); Hemoglobin 10.8 g/dL (13.5-17.5); Lymphocytes # (auto) 1.3 10 ^3/uL (0.4-5.4); Monocytes # (auto) 0.3 10 ^3/uL (0-1.3); White Blood Cell 5.2 10^3/uL (4.4-10.8)
[2023-12-20 06:34] LABS: Basophils % (auto) 1.8 % (0.0-2.0); Hematocrit 34.4 % (41.0-53.0); Lymphocytes % (auto) 24.7 % (10.0-50.0); Mean Corpuscular Hemoglobin 27.4 pg (28.0-32.0); Mean Corpuscular Hgb Conc. 31.5 g/dL (32.0-36.0); Monocytes % (auto) 6.3 % (0.0-12.0); Neutrophils # (auto) 3.2 10 ^3/uL (1.6-8.6); Neutrophils % (auto) 62.5 % (37.0-80.0); Nucleated Red Blood Cells % 0.1 %; Red Blood Cells 3.96 10^6/uL (4.5-5.90); Red Cell Distribution Width 17.8 % (11.8-14.3)
[2023-12-20 06:54] LABS: Alanine Aminotransferase 29 U/L (7-40); Albumin 3.7 g/dL (3.2-4.8); Alkaline Phosphatase 65 U/L (46-116); Anion Gap 10 (5-15); Aspartate Aminotransferase 28 U/L (13-40); BUN/Creatinine Ratio 11.9 (10.0-20.0); Bilirubin, Total 0.6 mg/dL (0.2-1.0); Blood Urea Nitrogen 13 mg/dL (9-23); Calcium 9.1 mg/dL (8.5-10.1); Carbon Dioxide 28 mmol/L (20-30); Chloride 105 mmol/L (98-107); Glucose 127 mg/dL (74-106); Potassium 3.4 mmol/L (3.5-5.1); Sodium 143 mmol/L (136-145); Total Protein 6.1 g/dL (5.7-8.2)
[2023-12-21] VITALS (11 sets, daily range): BP systolic 122–170; BP diastolic 57–80; PULSE 64–103; RESP 16–20; TEMP 97.8–98.4; O2SAT 95–100
[2023-12-21 06:15] LABS: Basophils # (auto) 0.1 10 ^3/uL (0-0.2); Eosinophils # (auto) 0.2 10 ^3/uL (0-0.8); Eosinophils % (auto) 4.1 % (0.0-7.0); Hematocrit 34.7 % (41.0-53.0); Hemoglobin 10.9 g/dL (13.5-17.5); Lymphocytes # (auto) 1.4 10 ^3/uL (0.4-5.4); Lymphocytes % (auto) 23.4 % (10.0-50.0); Mean Corpuscular Hemoglobin 27.3 pg (28.0-32.0); Mean Corpuscular Hgb Conc. 31.4 g/dL (32.0-36.0); Monocytes # (auto) 0.4 10 ^3/uL (0-1.3); Monocytes % (auto) 6.1 % (0.0-12.0); Neutrophils # (auto) 3.8 10 ^3/uL (1.6-8.6); Neutrophils % (auto) 64.4 % (37.0-80.0); Nucleated Red Blood Cells % 0.3 %; Red Blood Cells 3.98 10^6/uL (4.5-5.90); Red Cell Distribution Width 17.8 % (11.8-14.3); White Blood Cell 5.8 10^3/uL (4.4-10.8)
[2023-12-21 06:16] LABS: Calcium 9.4 mg/dL (8.5-10.1); Chloride 104 mmol/L (98-107); Potassium 3.4 mmol/L (3.5-5.1); Sodium 140 mmol/L (136-145)
[2023-12-21 06:17] LABS: Anion Gap 8 (5-15); Carbon Dioxide 28 mmol/L (20-30)
[2023-12-21 06:22] LABS: BUN/Creatinine Ratio 11.6 (10.0-20.0); Blood Urea Nitrogen 14 mg/dL (9-23); Glucose 119 mg/dL (74-106)
[2023-12-21] MEDS: ADENOSINE 6 MG/2 ML INJ IV ONE ×4 (08:34→10:30)
[2023-12-21] MEDS ORDERED: ENOXAPARIN SOD 40 MG/0.4 ML SYRINGE SC SCH (10:00)
[2023-12-21] MEDS: ENOXAPARIN SOD 150 MG/1 ML SYRINGE SC SCH (10:16)
[2023-12-21] MEDS: METOPROLOL TARTRATE 25 MG TAB PO SCH (10:16)
[2023-12-21] MEDS: AMIODARONE BOLUS KIT 100 ML IV ONE ×2 (10:24→10:35)
[2023-12-21] MEDS: AMIODARONE 450mg/250ml AE 250 ML IV ONE (10:31)
[2023-12-21] MEDS: AMIODARONE 450mg/250ml AE 250 ML IV SCH ×2 (10:49→17:44)
[2023-12-22] VITALS (7 sets, daily range): BP systolic 137–175; BP diastolic 32–72; PULSE 55–77; RESP 16–20; TEMP 98–98.4; O2SAT 95–99
[2023-12-22 05:45] LABS: Basophils # (auto) 0.1 10 ^3/uL (0-0.2); Basophils % (auto) 1.6 % (0.0-2.0); Eosinophils # (auto) 0.3 10 ^3/uL (0-0.8); Eosinophils % (auto) 4.8 % (0.0-7.0); Hematocrit 34.6 % (41.0-53.0); Hemoglobin 10.7 g/dL (13.5-17.5); Lymphocytes # (auto) 1.9 10 ^3/uL (0.4-5.4); Lymphocytes % (auto) 31.5 % (10.0-50.0); Mean Corpuscular Hemoglobin 27.4 pg (28.0-32.0); Mean Corpuscular Volume 88.3 fL (80.0-100.0); Monocytes # (auto) 0.4 10 ^3/uL (0-1.3); Monocytes % (auto) 6.9 % (0.0-12.0); Neutrophils # (auto) 3.3 10 ^3/uL (1.6-8.6); Neutrophils % (auto) 55.2 % (37.0-80.0); Red Blood Cells 3.91 10^6/uL (4.5-5.90); Red Cell Distribution Width 17.6 % (11.8-14.3)
[2023-12-22 05:57] LABS: Chloride 106 mmol/L (98-107); Potassium 3.9 mmol/L (3.5-5.1); Sodium 141 mmol/L (136-145)
[2023-12-22 05:58] LABS: Anion Gap 4 (5-15); Calcium 9.2 mg/dL (8.5-10.1); Carbon Dioxide 31 mmol/L (20-30)
[2023-12-22 06:03] LABS: BUN/Creatinine Ratio 11.3 (10.0-20.0); Blood Urea Nitrogen 15 mg/dL (9-23); Glucose 103 mg/dL (74-106)
[2023-12-22] MEDS: AMIODARONE HCL 200 MG TAB PO SCH (22:00)
[2023-12-22] MEDS: APIXABAN 5 MG TAB PO SCH (22:34)
[2023-12-23] VITALS (8 sets, daily range): BP systolic 138–144; BP diastolic 49–63; PULSE 57–77; RESP 16–19; TEMP 98.1–98.8; O2SAT 93–97
[2023-12-23] MEDS ORDERED: TAMS0.4C36 PO (10:17)
[2023-12-23] MEDS ORDERED: OMEP20TA PO (10:17)
[2023-12-23] MEDS: ACETAMINOPHEN 325 MG TAB PO PRN (10:36)
[2023-12-23] MEDS: TAMSULOSIN HYDROCHLORIDE 0.4 MG CAP PO SCH (17:56)
[2023-12-24] VITALS (8 sets, daily range): BP systolic 138–162; BP diastolic 52–71; PULSE 52–67; RESP 17–20; TEMP 98–99.4; O2SAT 96–99
[2023-12-25] VITALS (8 sets, daily range): BP systolic 118–162; BP diastolic 47–74; PULSE 63–88; RESP 16–19; TEMP 97.9–99.3; O2SAT 95–99
[2023-12-25] MEDS ORDERED: FLUTICASONE PROP NASAL SPR 0.05 % (50MCG) 16GM EACHNOSTRI PRN (15:00)
[2023-12-25] MEDS: TAMSULOSIN HYDROCHLORIDE 0.4 MG CAP PO SCH (17:42)
[2023-12-26] VITALS (7 sets, daily range): BP systolic 132–162; BP diastolic 45–61; PULSE 58–65; RESP 17–20; TEMP 97.9–98.2; O2SAT 95–98
[2023-12-27 04:58] VITALS: BP 130/57; PULSE 60; RESP 20; TEMP 98.7; O2SAT 96
[2023-12-27] MEDS ORDERED: APIX5TAB PO (10:47)
[2023-12-27] MEDS ORDERED: AML5T NG (10:47)
[2023-12-27] MEDS ORDERED: MET25T PO (10:47)
[2023-12-27] MEDS ORDERED: AMIO200T33 PO (10:47)
[2023-12-27 12:48] VITALS: BP 149/51; PULSE 53; RESP 18; TEMP 98; O2SAT 98
[2023-12-28] MEDS ORDERED: AMLO1TAB23 PO (11:40)
[2023-12-28] MEDS ORDERED: APIX5TAB PO (11:40)
[2023-12-28] MEDS ORDERED: MET50T PO (11:40)
== END 2023-12-27 14:25 | disposition home health service (06) | DRG 870 ==
LOC: EDBD 10:33 → ER 10:33 → TELE 13:12 → ICU WEST 12-12 17:39 → TELE-EAST 12-18 16:40 → EAST 12-20 11:19 → TELE-EAST 12-21 08:58 → EAST 12-24 12:14
PROVIDERS: ADMIT Internal Medicine; ATTEND Internal Medicine
PROC: 0BH17EZ Insertion of Endotracheal Airway into Trachea, Via Natural or Artificial Opening (ICD-10-PCS; 2023-12-11)
PROC: 06HY33Z Insertion of Infusion Device into Lower Vein, Percutaneous Approach (ICD-10-PCS; 2023-12-11)
PROC: 5A1955Z Respiratory Ventilation, Greater than 96 Consecutive Hours (ICD-10-PCS; principal; 2023-12-12)
PROC: 0B9D8ZX Drainage of Right Middle Lung Lobe, Via Natural or Artificial Opening Endoscopic, Diagnostic (ICD-10-PCS; 2023-12-15)
PROC: 05HC33Z Insertion of Infusion Device into Left Basilic Vein, Percutaneous Approach (ICD-10-PCS; 2023-12-18)
PROC: B54NZZA Ultrasonography of Left Upper Extremity Veins, Guidance (ICD-10-PCS; 2023-12-18)
DX: A41.9 Sepsis, unspecified organism (principal); J15.69 Pneumonia due to other Gram-negative bacteria; R65.21 Severe sepsis with septic shock; G93.41 Metabolic encephalopathy; J96.22 Acute and chronic respiratory failure with hypercapnia; J96.21 Acute and chronic respiratory failure with hypoxia; K76.7 Hepatorenal syndrome; N17.0 Acute kidney failure with tubular necrosis; J15.9 Unspecified bacterial pneumonia; I50.43 Acute on chronic combined systolic (congestive) and diastolic (congestive) heart failure; Z68.41 Body mass index [BMI] 40.0-44.9, adult; I48.92 Unspecified atrial flutter; J44.0 Chronic obstructive pulmonary disease with (acute) lower respiratory infection; J44.1 Chronic obstructive pulmonary disease with (acute) exacerbation; I69.354 Hemiplegia and hemiparesis following cerebral infarction affecting left non-dominant side; J98.11 Atelectasis; E11.65 Type 2 diabetes mellitus with hyperglycemia; I11.0 Hypertensive heart disease with heart failure; I95.9 Hypotension, unspecified; E66.01 Morbid (severe) obesity due to excess calories; E78.5 Hyperlipidemia, unspecified; E87.5 Hyperkalemia; Z99.81 Dependence on supplemental oxygen; Z87.01 Personal history of pneumonia (recurrent); Z82.49 Family history of ischemic heart disease and other diseases of the circulatory system
CPT/HCPCS: 36415; 36600; 70450; 71045; 76700; 80048; 80053; 80061; 80307; 81001; 82140; 82550; 82570; 82805; 82962; 83036; 83605; 83735; 83930; 84156; 84300; 84484; 85025; 85610; 85730; 86850; 86900; 86901; 87040; 87045; 87070; 87077; 87081; 87086; 87186; 87205; 87427; 92610; 93005; 93306; 94002; 94003; 94640; 94668; 96365; 96375; 97110; 97116; 97163; 97530; C9113; G0378; J0153; J0171; J1815; J2250; J2405; J2704; J7060